=== PATIENT | male | born 1950 | race Caucasian/White ===

== ENCOUNTER → 2017-10-07 | Outpatient (CLI) | payer OTHER | END | disposition home or self-care (01) | LOC: ECHO 09:59 | DX: I48.0 Paroxysmal atrial fibrillation (principal); I48.91 Unspecified atrial fibrillation; I08.2 Rheumatic disorders of both aortic and tricuspid valves | CPT/HCPCS: 93306 ==

== ENCOUNTER → 2019-10-20 | Outpatient (CLI) | payer OTHER ==
[2016-03-21 15:47] VITALS: BP 108/65
[~2019-10-20] MED LIST: AMIO200T7 PO; BLOO-1207 MC; BUPR150T15 PO; DILT120C99 PO; INSU100I27 SQ; LISI-334 PO; SIMV80TA17 PO; WARF2TAB96 PO
--- NOTE | 2019-10-20 12:03 | CARD ---
MR#: [id number] Date of Study: 10/20/2019 Ordering Physician: HEATHER NOVA, Referring Physician: HEATHER NOVA Tech: Nelda Tadeo RDCS APPROVED REPORT EXAM: Two-dimensional and M-mode echocardiogram with Doppler and color Doppler. Other Information Quality : Fair Rhythm : Atrial Fibrillation INDICATION Paroxysmal Atrial Fibrillation 2D DIMENSIONS RVDd3.3 (2.9-3.5cm)Left Atrium(2D)5.3 (1.6-4.0cm) IVSd1.1 (0.7-1.1cm)Aortic Root(2D)2.9 (2.0-3.7cm) LVDd5.4 (3.9-5.9cm)LVOT Diameter2.0 (1.8-2.4cm) PWd1.1 (0.7-1.1cm)LVDs3.4 (2.5-4.0cm) FS (%) 30.0 %SV95.1 ml LVEF(%)60.0 (>50%) Aortic Valve AoV Peak Lc.193.1cm/sAoV VTI36.0cm AO Peak GR.14.9mmHgLVOT Peak Lc.140.5cm/s AO Mean GR.8mmHgAVA (VMAX)2.31cm2 IRAIS (VTI)2.50cm2 Tricuspid Valve TR P. Igotmqrm327uv/sRAP JDMIXVCF4cbLd TR Peak Gr.26zfYpBLAX81myLa LEFT VENTRICLE The left ventricle is normal size. There is normal left ventricular wall thickness. The left ventricu lar systolic function is normal and the ejection fraction is within normal range. The Ejection Fracti on is 55-60%. There is normal LV segmental wall motion. RIGHT VENTRICLE The right ventricle is normal size. The right ventricular systolic function is normal. ATRIA The left atrium is mildly dilated. The right atrium size is normal. The interatrial septum is intact with no evidence for an atrial septal defect or patent foramen ovale as noted on 2-D or Doppler imagi ng. AORTIC VALVE The aortic valve is calcified but opens well. Doppler and Color Flow revealed no significant aortic r egurgitation. There is no significant aortic valvular stenosis. MITRAL VALVE The mitral valve is calcified but opens well. There is no evidence of mitral valve prolapse. There is no mitral valve stenosis. Doppler and Color-flow revealed mild mitral regurgitation. TRICUSPID VALVE The tricuspid valve is normal in structure and function. Doppler and Color Flow revealed trace to mil d tricuspid regurgitation. The PA pressure was estimated at 27 mmHg. There is no tricuspid valve sten osis. PULMONIC VALVE The pulmonic valve is not well visualized. Doppler and Color Flow revealed no pulmonic valvular regur gitation. There is no pulmonic valvular stenosis. GREAT VESSELS The aortic root is normal in size. The ascending aorta is mildly dilated at 3.5 cm. The IVC is normal in size and collapses >50% with inspiration. PERICARDIAL EFFUSION There is no evidence of significant pericardial effusion. Critical Notification Critical Value: No <Conclusion> The left ventricle is normal size. The left ventricular systolic function is normal and the ejection fraction is within normal range. The Ejection Fraction is 55-60%. Doppler and Color Flow revealed no significant aortic regurgitation. There is no significant aortic valvular stenosis. Doppler and Color-flow revealed mild mitral regurgitation. Doppler and Color Flow revealed trace to mild tricuspid regurgitation. The PA pressure was estimated at 27 mmHg. The ascending aorta is mildly dilated at 3.5 cm. Signed by : Wiley Grijalva MD Electronically Approved : 10/20/2019 12:02:53
== END | disposition home or self-care (01) ==
LOC: ECHO 09:54
PROVIDERS: ATTEND Internal Medicine Cardiovascular Disease
DX: I08.3 Combined rheumatic disorders of mitral, aortic and tricuspid valves (principal); I48.0 Paroxysmal atrial fibrillation
CPT/HCPCS: 93306

== ENCOUNTER → 2021-05-15 | Outpatient (CLI) | payer MEDICARE ==
[2016-03-21 15:47] VITALS: BP 108/65
[~2021-05-15] MED LIST changes: -LISI-334 PO; +LISI20TA18 PO
--- NOTE | 2021-05-15 17:14 | CARD ---
MR#: [id number] Date of Study: 05/15/2021 Ordering Physician: HEATHER BEE, Referring Physician: HEATHER BEE, Tech: Pippa Castro [facility] APPROVED REPORT EXAM: Two-dimensional and M-mode echocardiogram with Doppler and color Doppler. Other Information Quality : AverageHR: 71bpm Technically limited study due to body habitus. INDICATION Atrial Fibrillation RISK FACTORS Hypertension Hyperlipidemia Diabetes 2D DIMENSIONS RVDd4.4 (2.9-3.5cm)Left Atrium(2D)5.0 (1.6-4.0cm) IVSd1.1 (0.7-1.1cm)Aortic Root(2D)3.0 (2.0-3.7cm) LVDd6.2 (3.9-5.9cm)LVOT Diameter2.0 (1.8-2.4cm) PWd1.2 (0.7-1.1cm)LVDs4.3 (2.5-4.0cm) FS (%) 30.2 %SV111.0 ml LVEF(%)56.6 (>50%) Aortic Valve AoV Peak Lc.171.3cm/sAoV VTI33.9cm AO Peak GR.11.7mmHgLVOT Peak Lc.100.7cm/s LVOT VTI 22.07cmAO Mean GR.6mmHg IRAIS (VMAX)1.41oe2TXM (VTI)2.04cm2 Mitral Valve MV E Azftlzxw471.8cm/sMV E Peak Gr.112mmHg MV DECEL [id number] A Pgvmecce18.3cm/s MV RUF90edC/A Ratio3.7 MVA (PHT)3.80cm2 TDI E/Lateral E'10.2E/Medial E'10.9 Pulmonary Valve PV Peak Fetynlaa93.8cm/sPV Peak Grad.4mmHg Tricuspid Valve TR P. Cemijuyz652ha/sRAP YFWYYVCO4plLh TR Peak Gr.89rjIxUMGH82hyAr LEFT VENTRICLE The left ventricle is normal size. There is mild concentric left ventricular hypertrophy. The left ve ntricular systolic function is normal. The Ejection Fraction is 55-60%. There is normal LV segmental wall motion. Tissue Doppler imaging reveals moderate left ventricular diastolic dysfunction. RIGHT VENTRICLE The right ventricle is normal size. There is normal right ventricular wall thickness. The right ventr icular systolic function is normal. ATRIA The left atrium is moderately dilated. The right atrium is moderately dilated. The interatrial septum is intact with no evidence for an atrial septal defect or patent foramen ovale as noted on 2-D or Do ppler imaging. AORTIC VALVE The aortic valve is thickened but opens well. Doppler and Color Flow revealed trace aortic regurgitat ion. There is no significant aortic valvular stenosis. Calculated aortic valve area is 2.31 cm2 with maximum pressure gradient of 14 mmHg and mean pressure gradient of 7 mmHg. MITRAL VALVE Mitral annular calcification is mild. There is no evidence of mitral valve prolapse. There is no mitr al valve stenosis. Doppler and Color-flow revealed trace to mild mitral regurgitation. TRICUSPID VALVE The tricuspid valve is normal in structure and function. Doppler and Color Flow revealed trace tricus pid regurgitation with an estimated PAP of 38 mmHg. There is no tricuspid valve stenosis. PULMONIC VALVE The pulmonic valve is not well visualized. Doppler and Color Flow revealed trace pulmonic valvular re gurgitation. GREAT VESSELS The aortic root is normal in size. The ascending aorta is borderline dilated measuring 3.8 cm. The IV C is dilated. PERICARDIAL EFFUSION There is no evidence of significant pericardial effusion. Critical Notification Critical Value: No <Conclusion> The left ventricular systolic function is normal. The Ejection Fraction is 55-60%. There is normal LV segmental wall motion. Tissue Doppler imaging reveals moderate left ventricular diastolic dysfunction. Trace to mild mitral regurgitation. Trace tricuspid regurgitation with an estimated PAP of 38 mmHg. There is no evidence of significant pericardial effusion. Signed by : Heather Bee, Electronically Approved : 05/15/2021 17:13:41
== END ==
LOC: ECHO 09:42
PROVIDERS: ATTEND Internal Medicine Cardiovascular Disease
DX: I34.0 Nonrheumatic mitral (valve) insufficiency (principal); I51.7 Cardiomegaly; I48.0 Paroxysmal atrial fibrillation
CPT/HCPCS: 93306

== ENCOUNTER → 2021-12-05 | Outpatient (CLI) | payer MEDICARE ==
[2016-03-21 15:47] VITALS: BP 108/65
--- NOTE | 2021-12-05 12:56 | CARD ---
MR#: [id number] Date of Study: 12/05/2021 Ordering Physician: HEATHER BEE, Referring Physician: HEATHER BEE, Tech: APPROVED REPORT PROCEDURE: Successful implantation of [employer] reveal Linq loop recorder INDICATIONS: Dizziness and bradycardia r/o Sick sinus syndrome PROCEDURE DETAILS: An informed consent was obtained from patient. Patient was brought to the procedure suite and her le ft chest and shoulder were prepped and draped in the usual fashion. 20 mL of 2% lidocaine was infilt rated into the skin and subcutaneous tissues for local anesthesia. An incision was made in the left third intercostal space 1 inch from midsternal line and using the introducer and deploy provided with the kit, a [employer] reveal Linq loop recorder [id number] was inserted in the subcutaneous tissue. Hemostasis was secured. Patient tolerated the procedure well. There were no immediate complications . CONCLUSION: Successful implantation of [employer] reveal Linq loop recorder to rule out sick sinus syndrome Signed by : Heather Bee, Electronically Approved : 12/05/2021 12:55:23
== END | disposition home or self-care (01) ==
LOC: LINQ 11:15
PROVIDERS: ATTEND Internal Medicine Cardiovascular Disease
DX: R42 Dizziness and giddiness (principal); R00.1 Bradycardia, unspecified; I48.91 Unspecified atrial fibrillation; G47.30 Sleep apnea, unspecified; E11.9 Type 2 diabetes mellitus without complications; Z87.440 Personal history of urinary (tract) infections; Z79.4 Long term (current) use of insulin; Z79.899 Other long term (current) drug therapy; Z98.890 Other specified postprocedural states
CPT/HCPCS: 33285; C1764